=== PATIENT | male | born 1970 | race Caucasian/White ===

== ENCOUNTER 2019-12-10 09:48 | Emergency (ER) | payer BC ==
[~2019-12-10] VITALS: Ht 180.3 cm; Wt 102.1 kg
--- NOTE | 2019-12-10 11:32 | Diagnostic Imaging Report ---
Exam: Left humerus, 2 views History: Left elbow pain radiating down the left forearm Comparison: None. Findings: There is normal bone mineralization. No acute, displaced fracture or dislocation. Glenohumeral joint space is relatively well-preserved. Mild degenerative changes in the acromio clavicular joint. No abnormal soft tissue calcification or soft tissue defect. No soft tissue swelling. Impression: 1. No acute abnormalities. Signed by: Dr. Wilton Garcia M.D. on 12/10/2019 11:29 AM
--- NOTE | 2019-12-10 11:33 | Diagnostic Imaging Report ---
Exam: left forearm series. History: Left forearm pain Comparison: None. Findings: There is normal bone mineralization. No acute, displaced fracture or dislocation. No osteolytic or osteoblastic lesions. Joint spaces preserved. No abnormal soft tissue calcification or soft tissue defect. No soft tissue swelling. Impression: 1. No acute abnormalities. Signed by: Dr. Wilton Garcia M.D. on 12/10/2019 11:30 AM
[2019-12-10] MEDS ORDERED: MOTRIN800 MG PO (13:20)
[2019-12-10] MEDS ORDERED: SKELAXIN800 MG PO (13:20)
--- NOTE | 2019-12-10 13:44 | NUR ---
PATIENT REFUSED PAIN MEDICATION. REFUSED OUR ARM SLING, HE SAID HE WILL GET HIS OWN
== END 2019-12-10 13:46 | disposition home or self-care (01) ==
LOC: ER 09:48
DX: S53.492A Other sprain of left elbow, initial encounter (principal); X50.1XXA Overexertion from prolonged static or awkward postures, initial encounter; Y99.0 Civilian activity done for income or pay; E03.9 Hypothyroidism, unspecified; F41.9 Anxiety disorder, unspecified
CPT/HCPCS: 99283

== ENCOUNTER → 2020-11-09 | Day surgery (SDC) | payer BC ==
[~2020-11-09] MED LIST: CEFTRIAXONE SOD 1 GM VIAL ONE; IOPAMIDOL 300MG/ML 50ML INFUS..BTL IV ONE; LEVOTHYROXINE50 MCG PO; MEPERIDINE HCL INJ 25 MG/ML VIAL ONE; MOTRIN800 MG PO; SKELAXIN800 MG PO; SODIUM CHLORIDE 0.9% 50ML 50 ML ONE; anxiety med PO
[2020-11-09 09:30] VITALS: BP 142/78
== END | disposition home or self-care (01) ==
LOC: OR 05:50
PROVIDERS: ATTEND Urology
DX: N13.2 Hydronephrosis with renal and ureteral calculous obstruction (principal); I10 Essential (primary) hypertension; E66.9 Obesity, unspecified; F41.9 Anxiety disorder, unspecified; Z01.810 Encounter for preprocedural cardiovascular examination; Z01.818 Encounter for other preprocedural examination
CPT/HCPCS: 50590; 74018; 93005; C1758; C1769; J0696; J2175; Q9967